=== PATIENT | male | born 1970 | race African-American/Black ===

== ENCOUNTER 2020-07-22 09:23 | Emergency (ER) | payer MEDICAID ==
[~2020-07-22] VITALS: Ht 182.9 cm; Wt 85.0 kg
[2020-07-22 09:58] LABS: EOSINOPHILS % 6.6 % (0.0-5.0); HEMATOCRIT. 44.7 % (42.0-52.0); HEMOGLOBIN. 15.4 g/dL (14.0-18.0); LYMPHOCYTES % 21.2 % (20.0-50.0); MEAN CORPUSCULAR HEMOGLOBIN 30.7 pg (28.0-32.0); MEAN CORPUSCULAR VOLUME 88.9 fL (80.0-94.0); MEAN PLATELET VOLUME 7.6 fl (7.4-10.4); MONOCYTES % 11.7 % (2.0-8.0); NEUTROPHILS % 59.5 % (40.0-76.0); PLATELET 150 x1000/uL (130-400); RED BLOOD CELL COUNT 5.02 mill/uL (4.7-6.1)
[2020-07-22 10:07] LABS: CHLORIDE 111 mEq/L (98-107)
[2020-07-22 10:13] LABS: ETHANOL BLOOD < 10 mg/dL
[2020-07-22 10:41] LABS: *BARBITURATES SCREEN URINE NEGATIVE (NEGATIVE); *BENZODIAZEPINES SCREEN URINE NEGATIVE (NEGATIVE); *COCAINE SCREEN URINE NEGATIVE (NEGATIVE)
[2020-07-22 10:42] LABS: CANNABINOID URINE SCREEN PRESUMTIVE POSITIVE (NEGATIVE); METHADONE URINE SCREEN NEGATIVE (NEGATIVE); OPIATES URINE SCREEN NEGATIVE (NEGATIVE); PHENCYCLIDINE URINE SCREEN NEGATIVE (NEGATIVE)
[2020-07-22 10:46] LABS: *AMPHETAMINES SCREEN URINE NEGATIVE (NEGATIVE)
[2020-07-22 10:53] VITALS: BP 120/80
== END 2020-07-22 11:00 | disposition home or self-care (01) ==
LOC: ER 09:23
DX: R07.89 Other chest pain (principal); Z88.0 Allergy status to penicillin; Z98.890 Other specified postprocedural states; Z93.3 Colostomy status; Z86.39 Personal history of other endocrine, nutritional and metabolic disease
CPT/HCPCS: 36415; 71045; 80053; 80305; 80320; 83880; 84484; 85025; 93005; 99285; G0480